=== PATIENT | male | born 1995 | race Caucasian/White ===

== ENCOUNTER 2018-08-08 04:05 | Emergency (ER) | payer OTHER ==
[2018-08-08 04:24] LABS: ABSOLUTE EOSINOPHILS # (AUTO) 0.3 10^3/uL (0.0-0.6); ABSOLUTE LYMPHOCYTES (AUTO) 3.5 10^3/uL (0.5-4.7); ABSOLUTE MONOCYTES (AUTO) 0.6 10^3/uL (0.1-1.4); ABSOLUTE NEUT (AUTO) 3.2 10^3/uL (1.7-8.2); BASOPHILS % (AUTO) 0.4 % (0-2); EOSINOPHILS % (AUTO) 4.4 % (0-6); HEMATOCRIT 38.9 % (37.9-51.0); HEMOGLOBIN 13.1 g/dL (13.5-17.0); LYMPHOCYTES % (AUTO) 46.1 % (13-45); MEAN CORPUSCULAR HEMOGLOBIN 28.1 pg (27.0-33.4); MEAN CORPUSCULAR HGB CONC 33.6 g/dL (32.0-36.0); MEAN CORPUSCULAR VOLUME 84 fl (80-97); MONOCYTES % (AUTO) 7.2 % (3-13); PLATELET COUNT 232 10^3/uL (150-450); RED BLOOD COUNT 4.66 10^6/uL (4.35-5.55); RED CELL DISTRIBUTION WIDTH 13.4 % (11.5-14.0); SEGMENTED NEUTROPHILS % (AUTO) 41.9 % (42-78); TOTAL CELLS COUNTED % (AUTO) 100 %; WHITE BLOOD COUNT 7.7 10^3/uL (4.0-10.5)
[2018-08-08 04:48] LABS: ALANINE AMINOTRANSFERASE 23 U/L (21-72); ALBUMIN 4.4 g/dL (3.5-5.0); ALKALINE PHOSPHATASE 71 U/L (38-126); ANION GAP 13 (5-19); ASPARTATE AMINO TRANSFERASE 24 U/L (17-59); BILIRUBIN,DIRECT 0.2 mg/dL (0.0-0.4); BILIRUBIN,TOTAL 0.5 mg/dL (0.2-1.3); BLOOD UREA NITROGEN 21 mg/dL (7-20); CALCIUM 9.5 mg/dL (8.4-10.2); CARBON DIOXIDE 26 mmol/L (22-30); CHLORIDE 102 mmol/L (98-107); CREATINE KINASE 273 U/L (55-170); GLUCOSE 125 mg/dL (75-110); POTASSIUM 4.1 mmol/L (3.6-5.0); SODIUM 140.6 mmol/L (137-145); TOTAL PROTEIN 7.2 g/dL (6.3-8.2)
[2018-08-08 05:00] LABS: CREATINE KINASE MB 0.74 ng/mL (<4.55)
[2018-08-08 05:01] LABS: TROPONIN I < 0.012 ng/mL
[2018-08-08] MEDS ORDERED: RINGERS SOLUTION,LACTATED 1,000 ML IV ONE (05:39)
[2018-08-08 06:33] LABS: APPEARANCE,URINE CLEAR; BILIRUBIN,URINE NEGATIVE (NEGATIVE); COLOR,URINE STRAW; GLUCOSE, URINE NEGATIVE (NEGATIVE); KETONES,URINE NEGATIVE (NEGATIVE); LEUKOCYTE ESTERASE,URINE NEGATIVE (NEGATIVE); NITRITE,URINE NEGATIVE (NEGATIVE); PROTEIN,URINE NEGATIVE (NEGATIVE); URINE SPECIFIC GRAVITY 1.006; UROBILINOGEN,URINE NEGATIVE mg/dL (<2.0)
--- NOTE | 2018-08-08 06:39 | RADIOLOGY REPORT (SQ) ---
CT head without contrast on 08/08/2018 at 6:19 AM CLINICAL INDICATION: Pain after fall TECHNIQUE: Multiple axial images are obtained throughout the head without the administration of contrast. This exam was performed according to our departmental dose-optimization program, which includes automated exposure control, adjustment of the mA and/or kV according to patient size and/or use of iterative reconstruction technique. Total DLP is 1043.77 mGy*cm. COMPARISON: None FINDINGS: There is no hydrocephalus. There is no CT evidence of acute infarct. There is no hemorrhage. There are no abnormal extra-axial fluid collections. There is no mass, mass effect or midline shift. No bony abnormality is noted. IMPRESSION: No acute intracranial abnormality.
[2018-08-08 06:45] LABS: URINE AMPHETAMINES SCREEN NEGATIVE; URINE BARBITURATES SCREEN NEGATIVE; URINE BENZODIAZEPINES SCREEN NEGATIVE; URINE COCAINE SCREEN NEGATIVE; URINE MARIJUANA (THC) SCREEN NEGATIVE; URINE METHADONE SCREEN NEGATIVE; URINE PHENCYCLIDINE SCREEN NEGATIVE
--- NOTE | 2018-08-08 06:53 | RADIOLOGY REPORT (SQ) ---
EXAM DESCRIPTION: CT CERVICAL SPINE WITHOUT IV CONTRAST COMPLETED DATE/TME: 08/08/2018 05:38 CLINICAL HISTORY: 23 years, Male, trauma/fall COMPARISON: None TECHNIQUE: Multiplanar imaging through the cervical spine without contrast. This exam was performed according to our departmental dose-optimization program, which includes automated exposure control, adjustment of the mA and/or kV according to patient size and/or use of iterative reconstruction technique. FINDINGS: No fracture. No subluxation. Disc spaces are preserved. Soft tissues are unremarkable. Visualized lung is clear. IMPRESSION: No acute abnormality. No fracture or subluxation.
[2018-08-08] MEDS ORDERED: NORMAL SALINE 1000 ML 1,000 ML IV ONE (07:26)
[2018-08-08 10:12] VITALS: BP 115/58
--- NOTE | 2018-08-08 10:44 | ER Document Report ---
Entered by ADAM PANCHAL SCRIBE 08/08/18 0634 Acting as scribe for:ALANNA SCHMIDT MD ED General - General Chief Complaint: Syncope Stated Complaint: SYNCOPE Time Seen by Provider: 08/08/18 06:07 Mode of Arrival: Ambulatory Information source: Patient Notes: Patient is a 23 year old male with HTN presents to the emergency department accompanied by complaining of multiple syncopal episodes onset this morning. Patient states around 0300 today, he got up to use the bathroom and proceeded to pass out 3x. states after the patient urinated, became wobbly then completely stiff and fell backwards into the bathtub hitting the back of his head. She states he immediately got back up, walked into the bedroom and passed out into the bed frame hitting his right ear. She states he immediately got back up again and proceeded to have another syncopal episode and fell into their fan that subsequently broke in half. She states the patient stated after a syncopal episode, "What? I'm just tired" and appeared to not remember passing out. She denies any seizure like activity within the patient. Patient denies any head pain. Patient reports similar symptoms while in [employer] 3 years ago but attributes this to have bilateral pneumonia at the time. Patient is currently on Lisinopril (nightly) and Trazodone for insomnia. TRAVEL OUTSIDE OF THE [place] IN LAST 30 DAYS: No - Related Data Allergies/Adverse Reactions: No Known Allergies Allergy (Unverified 08/08/18 04:44) Past Medical History - General Information source: Patient, Relative - Social History Smoking Status: Never Smoker Cigarette use (# per day): No Chew tobacco use (# tins/day): Yes Smoking Education Provided: No Frequency of alcohol use: Rare Drug Abuse: None Lives with: Spouse/Significant other Family History: Reviewed & Not Pertinent Patient has suicidal ideation: No Patient has homicidal ideation: No - Past Medical History Cardiac Medical History: Reports: Hx Hypertension Review of Systems - Review of Systems Constitutional: No symptoms reported EENT: No symptoms reported Cardiovascular: See HPI, Syncope Respiratory: No symptoms reported Gastrointestinal: No symptoms reported Genitourinary: No symptoms reported Male Genitourinary: No symptoms reported Musculoskeletal: No symptoms reported Skin: No symptoms reported Hematologic/Lymphatic: No symptoms reported Neurological/Psychological: No symptoms reported -: Yes All other systems reviewed and negative Physical Exam - Vital signs Vitals: Pulse Ox 99 08/08/18 04:06 - Notes Notes: GENERAL: Alert, interacts well. No acute distress. HEAD: Normocephalic, atraumatic. No tenderness to palpation. EYES: Pupils equal, round, and reactive to light. Extraocular movements intact. ENT: Oral mucosa moist, tongue midline. [place] of right ear contains faint bruising. NECK: Full range of motion. Supple. Trachea midline. No tenderness to palpation. LUNGS: Clear to auscultation bilaterally, no wheezes, rales, or rhonchi. No respiratory distress. HEART: Regular rate and rhythm. No murmurs, gallops, or rubs. ABDOMEN: Soft, non-tender. Non-distended. Bowel sounds present in all 4 quadrants. No guarding, rigidity, or rebound. EXTREMITIES: Moves all 4 extremities spontaneously. No edema, radial pulses 2/4 bilaterally. NEUROLOGICAL: Alert and oriented x3. Normal speech. There is no nystagmus on lateral gaze. PSYCH: Normal affect, normal mood. SKIN: Warm, dry, normal turgor. No rashes or lesions noted. Course - Re-evaluation Re-evalutation: 08/08/18 09:05 After 3 L of IV fluids, the patient remains bradycardic with a heart rate of 47 and hypotensive with blood pressure 100/52 while he is sleeping. After I awakened the patient and talked with him, his heart rate increased to 78. We will try walking him and see what his pulse and pressure does. 08/08/18 09:50 The patient walked to the end of the [place]nandez and back. He reported feeling somewhat dizzy and lightheaded, his blood pressure actually went up from 100 systolic to about 147 systolic. His heart rate remained in the upper 40s to low 50s. 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 There is concern that the episodes today involved him going stiff and falling repeatedly and he was totally unaware of any of that. He reports the only thing he remembers after going to the bathroom was when the EMS personnel picked him up. He has been advised to take it easy the rest of the weekend, get plenty to eat and plenty to drink and try to get plenty of sleep. He is also encouraged to go to his primary care provider Friday morning to discuss the events of this morning and seek referral into the internal medicine department for further work-up. - Vital Signs Vital signs: Temp Pulse Resp BP Pulse Ox 98.5 F 58 L 11 L 115/58 L 100 08/08/18 10:01 08/08/18 04:49 08/08/18 10:01 08/08/18 10:01 08/08/18 10:01 - Laboratory Result Diagrams: 08/08/18 03:40 08/08/18 03:40 Laboratory results interpreted by me: 08/08/18 08/08/18 03:40 03:40 Hgb 13.1 L Seg Neutrophils % 41.9 L Lymphocytes % 46.1 H BUN 21 H Glucose 125 H Creatine Kinase 273 H - Diagnostic Test Radiology reviewed: Image reviewed, Reports reviewed - CT scans of the head and neck are unremarkable. - EKG Interpretation by Me EKG shows normal: Sinus rhythm, [place], Intervals, QRS Complexes, ST-T Waves Rate: Bradycardia - 49 When compared to previous EKG there are: Previous EKG unavailable Discharge - Discharge Clinical Impression: Syncope and collapse, Bradycardia Hypotension Qualifiers: Hypotension type: unspecified hypotension type Qualified Code(s): I95.9 - Hypotension, unspecified Condition: Stable Disposition: HOME, SELF-CARE Additional Instructions: Syncopal Episode Syncope (fainting or near-fainting) can occur from many different health problems. Or it can be a simple fainting spell requiring no treatment. It is safe for you to go home, but further evaluation will likely be necessary. Your work-up may include tests for internal bleeding, heart disease, medication problems, or near-strokes. Tests are not always required, however, depending on the nature of your problem. The warning signs of an impending faint include: dizziness, lightheadedness, nausea, hot flashes, tingling, and weakness. If this happens, lay down and put your feet up, then wait until all of these symptoms have passed before standing up again. If these episodes become recurrent, or if you develop chest pain, heart palpitations, mental confusion, blurred vision, or headache, then you should call the physician, or go to the emergency room. Get plenty of rest over the weekend. Drink plenty of fluids and get plenty to eat. Follow-up with your primary care provider Friday to look into your episodes of sleep paralysis and the syncopal episodes that occurred this morning. RETURN TO THE EMERGENCY ROOM IF ANY NEW OR WORSENING SYMPTOMS. Scribe Attestation: 08/08/18 08:00 I personally performed the services described in the documentation, reviewed and edited the documentation which was dictated to the scribe in my presence, and it accurately records my words and actions. I personally performed the services described in the documentation, reviewed and edited the documentation which was dictated to the scribe in my presence, and it accurately records my words and actions.
== END 2018-08-08 10:29 | disposition home or self-care (01) ==
LOC: ER 04:05
DX: R55 Syncope and collapse (principal); I95.9 Hypotension, unspecified; R00.1 Bradycardia, unspecified; S00.431A Contusion of right ear, initial encounter; W22.03XA Walked into furniture, initial encounter; I10 Essential (primary) hypertension; G47.00 Insomnia, unspecified; Z79.899 Other long term (current) drug therapy
CPT/HCPCS: 99284; 96360; 96361; 36415; 82553; 82550; 85025; 80053; 81001; 84484; 80307; 70450; 72125; J7030; J7120